=== PATIENT | male | born 1945 | race Caucasian/White ===

== ENCOUNTER 2019-02-16 17:19 | Emergency (ER) | payer MEDICARE, MEDICAID ==
[~2019-02-16] VITALS: Ht 177.8 cm; Wt 102.5 kg
--- NOTE | 2019-02-16 17:30 | NUR ---
patient came to ER c/o "I Fell off my bed and hit my face kandice since then been having GONZALEZ/tired". on room air, breathing evenly and unlabored. Kept comfortable, will continue to monitor accordingly.
--- NOTE | 2019-02-16 17:39 | NUR ---
patient wheeld going for ct scan.
--- NOTE | 2019-02-16 17:53 | NUR ---
patient came back from ct scan
[2019-02-16 18:11] VITALS: BP 125/66
--- NOTE | 2019-02-16 18:12 | NUR ---
Patient discharged to home in stable condition. Written and verbal after care instructions given. Patient verbalizes understanding of instruction.
== END 2019-02-16 18:11 | disposition home or self-care (01) ==
LOC: ER 17:29
DX: S00.83XA Contusion of other part of head, initial encounter (principal); I10 Essential (primary) hypertension; K21.9 Gastro-esophageal reflux disease without esophagitis; M19.90 Unspecified osteoarthritis, unspecified site; I48.91 Unspecified atrial fibrillation; I25.2 Old myocardial infarction; Z95.818 Presence of other cardiac implants and grafts; Z60.2 Problems related to living alone; Z98.890 Other specified postprocedural states; W22.8XXA Striking against or struck by other objects, initial encounter; Y93.89 Activity, other specified; Y92.89 Other specified places as the place of occurrence of the external cause; Y99.8 Other external cause status
CPT/HCPCS: 70450-TC; 70486-TC